=== PATIENT | female | born 1945 | race African-American/Black ===

== ENCOUNTER 2018-11-13 06:43 | Day surgery (SDC) | payer MEDICARE ==
[~2018-11-13 06:43] MED LIST: Acetaminophen TAB* 325 MG PO PRN; Buffered Lidocaine 0.9% SYRIN* 5 ML/SYR SYRINGE INTRADERM ONE; mitoMYcin PWD* 0.2 MG in Sterile Water for Inj* 1 ML OPHTHALMIC SCH
[2018-11-13] MEDS ORDERED: Midazolam* 1 MG/ML 2 ML VIAL (2 MG) ONE ×2 (07:55→08:46)
[2018-11-13] MEDS ORDERED: fentaNYL* 50 MCG/ML 2 ML VIAL (100 MCG VIAL) ONE (08:28)
[2018-11-13 09:10] VITALS: BP 157/83
--- NOTE | 2018-11-13 11:44 | OP ---
OPERATIVE NOTE: DATE OF OPERATION: 11/13/18 DATE OF : 49 SURGEON: Keaton Montes M.D. PREOPERATIVE DIAGNOSIS: Glaucoma, left. POSTOPERATIVE DIAGNOSIS: Glaucoma, left. OPERATIVE PROCEDURE: XEN implant, left. ANESTHESIA: Local with MAC. COMPLICATIONS: None. DESCRIPTION OF PROCEDURE: The patient was prepped and draped in the usual sterile fashion. Lid spec ulum was placed. A 2% lidocaine with epinephrine was dripped on the cornea. A paracentesis made at the 1 o'clock position using the 75 blade. Anterior chamber irrigated with 1% non-preserved intracame ral lidocaine and followed by Provisc. A clear corneal incision was made at the 5 o'clock position, the XEN implant was placed at the 11 o'clock position without difficulty. Mitomycin-C 0.2 mg/mL, 0.1 mL injected near the tip of the device and then the anterior chamber irrigated with balance salt solu tion and Maxitrol given at the end of the case. [id number]/[facility] #: [id number]
[2018-11-13] MEDS ORDERED: Lidocaine 2% EPI 1:200000 MPF*10-20 ML VIAL ONE (12:52)
[2018-11-13] MEDS ORDERED: Povidone Iodine 5% OPTH* 30 ML BTL ONE (12:52)
[2018-11-13] MEDS ORDERED: Proparacaine 0.5% OPHTH.SOL* 15 ML BTL ONE (12:52)
[2018-11-13] MEDS ORDERED: Neomycin/Polymy/Dex OPTH.SUSP* MAXITROL 0.1% 5 ML ONE (12:52)
[2018-11-13] MEDS ORDERED: Lidocaine 1%* 5 ML VIAL ONE (12:52)
== END 2018-11-13 09:16 | disposition home or self-care (01) ==
LOC: OREAST 06:43
PROVIDERS: ATTEND Specialist
DX: H40.1122 Primary open-angle glaucoma, left eye, moderate stage (principal); Z87.891 Personal history of nicotine dependence; E11.9 Type 2 diabetes mellitus without complications; I10 Essential (primary) hypertension; E78.5 Hyperlipidemia, unspecified
CPT/HCPCS: A9270-GY; C1725; J2250; J3010; J9280

== ENCOUNTER 2018-11-20 06:58 | Day surgery (SDC) | payer MEDICARE ==
[2018-11-20] MEDS ORDERED: Midazolam* 1 MG/ML 2 ML VIAL (2 MG) ONE (08:02)
[2018-11-20] MEDS ORDERED: fentaNYL* 50 MCG/ML 2 ML VIAL (100 MCG VIAL) ONE (09:01)
[2018-11-20 09:30] VITALS: BP 166/88
[2018-11-20] MEDS ORDERED: Povidone Iodine 5% OPTH* 30 ML BTL ONE (10:28)
[2018-11-20] MEDS ORDERED: Lidocaine 1%* 5 ML VIAL ONE (10:28)
[2018-11-20] MEDS ORDERED: Neomycin/Polymy/Dex OPTH.SUSP* MAXITROL 0.1% 5 ML ONE (10:28)
[2018-11-20] MEDS ORDERED: Lidocaine 2% EPI 1:200000 MPF*10-20 ML VIAL ONE (10:28)
[2018-11-20] MEDS ORDERED: Proparacaine 0.5% OPHTH.SOL* 15 ML BTL ONE (10:28)
--- NOTE | 2018-11-20 15:56 | OP ---
OPERATIVE REPORT: DATE OF OPERATION: 11/20/18. DATE OF : 49 SURGEON: Keaton Montes M.D. ANESTHESIA: Local with MAC. PREOPERATIVE DIAGNOSIS: Uncontrolled glaucoma, right. POSTOPERATIVE DIAGNOSIS: Uncontrolled glaucoma, right. OPERATIVE PROCEDURE: XEN implant, right. COMPLICATIONS: None. DESCRIPTION OF PROCEDURE: The patient was prepped and draped in the usual sterile fashion. Lid spec ulum was placed. A paracentesis made at the 10 o'clock position with a 75 blade. A 1% non-preserved intracameral lidocaine injected into the anterior chamber followed by Provisc. A 1.8 mm Keratome wa s used to make a clear corneal incision at the 7 o'clock position. XEN implant was placed without di fficulty at the 1 o'clock position subconjunctivally. Mitomycin-C 0.2 mg/mL, 0.1 mL was injected beatriz r the apex of the tube. Anterior chamber irrigated with balance salt solution and topical Maxitrol d rops was given. [id number]/[facility] #: [id number]
== END 2018-11-20 09:36 | disposition home or self-care (01) ==
LOC: OREAST 06:58
PROVIDERS: ATTEND Specialist
DX: H40.1122 Primary open-angle glaucoma, left eye, moderate stage (principal); E11.9 Type 2 diabetes mellitus without complications; I10 Essential (primary) hypertension; E78.5 Hyperlipidemia, unspecified; Z87.891 Personal history of nicotine dependence
CPT/HCPCS: A9270-GY; C1725; J2250; J3010; J9280

== ENCOUNTER 2024-03-01 14:28 | Inpatient (IN) ==
[2024-03-01] MEDS: NS 0.9% 1000 ml BAG 1,000 ML IV ONE (15:20)
[2024-03-01 15:32] LABS: ABS Basophils 0.1 10^3/uL (0.0-0.1); ABS Eosinophils 0.1 10^3/uL (0.0-0.5); ABS Lymphocytes 1.7 10^3/uL (1.0-4.8); ABS Monocytes 0.9 10^3/uL (0.0-0.9); ABS Neutrophils 10.4 10^3/uL (1.5-7.6); ABS Nucleated RBC 0.02 10^3/ul; Eosinophil % 0.5 %; Hematocrit 24.6 % (35-45); Hemoglobin 8.2 g/dL (11.5-14.3); Lymphocyte % 12.9 %; Mean Corpuscular Hemoglobin 31.3 pg (27-33); Mean Corpuscular Hgb Conc 33.5 g/dL (31-36); Mean Corpuscular Volume 93.3 fL (80-97); Mean Platelet Volume 8.2 fL (7.5-11.2); Nucleated Red Blood Cells % 0.1 %/100WBC (0.0-0.8); Platelet Count 372 10^3/uL (150-450); Red Blood Count 2.63 10^6/uL (3.63-4.92); Red Cell Distribution Width 13.6 % (12-17); White Blood Count 13.1 10^3/uL (3.8-11.8)
[2024-03-01 15:46] LABS: INR 1.05 (0.83-1.13)
[2024-03-01 16:19] LABS: Albumin/Globulin Ratio 1.9 (1-3); Calcium 9.3 mg/dL (8.6-10.3); Creatinine, Serum 0.89 mg/dL (0.51-0.95); Globulin 2.1 g/dL (2-4); Magnesium 1.6 mg/dL (1.9-2.7); Phosphorus 4.6 mg/dL (2.5-5.0); Potassium 4.3 mmol/L (3.5-5.0); Total Bilirubin 0.2 mg/dL (0.2-1.0); Total Protein 6.1 g/dL (6.4-8.9); eGFR CKD-EPI 67.1 (>60)
[2024-03-01] MEDS: Iodixanol (CONTRAST) 320 MG/ML 100 ML SDV IV ONE (16:37)
[2024-03-01 17:38] LABS: High Sensitivity Troponin 1 Hr 7 pg/mL (<15)
[2024-03-01] MEDS ORDERED: Ondansetron 4 mg VIAL 2 MG/ML 2 ml VIAL IV PRN (19:12)
[2024-03-01] MEDS ORDERED: Dextrose 50% Syringe 50 ml 25 GM/50 ML SYRINGE IV PUSH PRN (19:16)
[2024-03-01] MEDS: PEG 3000 GI LAVAGE 1 GALLON PO ONE (20:52)
[2024-03-01] MEDS: PTO:Netarsudil Mesylat/Lananoprost 0.02%-0.005% EYE DRP 2.5 ml BOTTLE BOTH EYES SCH (21:58)
[2024-03-02 00:40] LABS: Hematocrit 20.7 % (35-45); Hemoglobin 7.1 g/dL (11.5-14.3); Mean Corpuscular Hgb Conc 34.1 g/dL (31-36); Mean Corpuscular Volume 93.8 fL (80-97); Mean Platelet Volume 7.9 fL (7.5-11.2); Platelet Count 307 10^3/uL (150-450); Red Blood Count 2.21 10^6/uL (3.63-4.92); Red Cell Distribution Width 13.8 % (12-17); White Blood Count 10.4 10^3/uL (3.8-11.8)
[2024-03-02 04:29] LABS: Hematocrit 22.2 % (35-45); Hemoglobin 7.5 g/dL (11.5-14.3); Mean Corpuscular Hemoglobin 31.3 pg (27-33); Mean Corpuscular Hgb Conc 33.6 g/dL (31-36); Mean Corpuscular Volume 93.2 fL (80-97); Mean Platelet Volume 7.8 fL (7.5-11.2); Platelet Count 370 10^3/uL (150-450); Red Blood Count 2.39 10^6/uL (3.63-4.92); Red Cell Distribution Width 13.8 % (12-17); White Blood Count 11.8 10^3/uL (3.8-11.8)
[2024-03-02 07:26] LABS: Calcium 8.5 mg/dL (8.6-10.3); Creatinine, Serum 0.76 mg/dL (0.51-0.95); Magnesium 1.5 mg/dL (1.9-2.7); eGFR CKD-EPI 81.2 (>60)
[2024-03-02 10:09] LABS: Hematocrit 21.3 % (35-45); Hemoglobin 7.3 g/dL (11.5-14.3); Mean Corpuscular Hemoglobin 31.8 pg (27-33); Mean Corpuscular Hgb Conc 34.2 g/dL (31-36); Mean Platelet Volume 8.1 fL (7.5-11.2); Platelet Count 322 10^3/uL (150-450); Red Blood Count 2.29 10^6/uL (3.63-4.92); Red Cell Distribution Width 13.5 % (12-17); White Blood Count 9.2 10^3/uL (3.8-11.8)
[2024-03-02] MEDS: Timolol 0.5% OPTH.SOL BTL LEFT EYE SCH (10:50)
[2024-03-02] MEDS: Magnesium Sulfate 2 gm BAG 2 GM/50 ML BAG IVPB ONE (16:05)
[2024-03-02] MEDS: Magnesium Sulfate IV 1GM/100ML 1 GM/100 ML BAG IV ONE (17:14)
[2024-03-03 00:19] LABS: Hematocrit 21.7 % (35-45); Hemoglobin 7.3 g/dL (11.5-14.3)
[2024-03-03 05:54] LABS: ABS Eosinophils 0.2 10^3/uL (0.0-0.5); ABS Lymphocytes 1.5 10^3/uL (1.0-4.8); ABS Monocytes 0.8 10^3/uL (0.0-0.9); ABS Neutrophils 6.4 10^3/uL (1.5-7.6); ABS Nucleated RBC 0.02 10^3/ul; Eosinophil % 1.7 %; Hematocrit 21.3 % (35-45); Hemoglobin 7.3 g/dL (11.5-14.3); Lymphocyte % 16.4 %; Mean Corpuscular Hemoglobin 31.6 pg (27-33); Mean Corpuscular Hgb Conc 34.3 g/dL (31-36); Mean Corpuscular Volume 92.2 fL (80-97); Mean Platelet Volume 7.5 fL (7.5-11.2); Nucleated Red Blood Cells % 0.2 %/100WBC (0.0-0.8); Platelet Count 329 10^3/uL (150-450); Red Blood Count 2.31 10^6/uL (3.63-4.92); Red Cell Distribution Width 13.6 % (12-17); White Blood Count 8.9 10^3/uL (3.8-11.8)
[2024-03-03 06:34] LABS: Calcium 8.6 mg/dL (8.6-10.3); Creatinine, Serum 0.63 mg/dL (0.51-0.95); Potassium 3.7 mmol/L (3.5-5.0); eGFR CKD-EPI 91.9 (>60)
[2024-03-03] MEDS ORDERED: Midazolam 10 mg/10 ml VIAL 1 mg/ml 10 ml VIAL (10 mg) ONE (14:58)
[2024-03-03] MEDS ORDERED: fentaNYL 100 mcg/2 ml 50 MCG/ML VIAL ONE (14:58)
[2024-03-04 07:23] LABS: ABS Eosinophils 0.2 10^3/uL (0.0-0.5); ABS Lymphocytes 1.4 10^3/uL (1.0-4.8); ABS Monocytes 0.7 10^3/uL (0.0-0.9); ABS Neutrophils 5.5 10^3/uL (1.5-7.6); ABS Nucleated RBC 0.01 10^3/ul; Hematocrit 21.4 % (35-45); Hemoglobin 7.2 g/dL (11.5-14.3); Lymphocyte % 18.4 %; Mean Corpuscular Hemoglobin 31.2 pg (27-33); Mean Corpuscular Hgb Conc 33.6 g/dL (31-36); Mean Corpuscular Volume 92.9 fL (80-97); Mean Platelet Volume 7.6 fL (7.5-11.2); Nucleated Red Blood Cells % 0.1 %/100WBC (0.0-0.8); Platelet Count 334 10^3/uL (150-450); Red Cell Distribution Width 13.8 % (12-17); White Blood Count 7.8 10^3/uL (3.8-11.8)
[2024-03-04 10:21] VITALS: BP 123/77
== END 2024-03-04 11:00 | disposition home or self-care (01) | DRG 379 ==
LOC: EDHOLD 14:28 → ED 14:28 → SUATTDRO 18:58 → MED 03-02 08:27
PROVIDERS: ADMIT Internal Medicine; ATTEND Internal Medicine